=== PATIENT | male | born 2000 | race Caucasian/White ===

== ENCOUNTER 2022-08-10 08:31 | Emergency (ER) | payer MEDICAID, OTHER ==
[~2022-08-10] VITALS: Ht 182.9 cm; Wt 67.9 kg
[2022-08-10] MEDS ORDERED: NS 1,000 ML IV ONE (09:15)
[2022-08-10] MEDS ORDERED: HALOPERIDOL 5MG/ML 1ML VIAL IV ONE (09:15)
[2022-08-10] MEDS ORDERED: PANTOPRAZOLE 40MG VIAL IV ONE (09:15)
[2022-08-10 10:14] LABS: BASO % 0.2 % (0.0-1.0); EOS # 0.1 10^3/uL (0.0-0.5); EOS % 0.5 % (0.0-3.0); HEMATOCRIT 45.7 % (42.0-52.0); HEMOGLOBIN 16.1 g/dl (13.5-17.5); LYMPH # 1.5 10^3/uL (1.5-5.0); LYMPH % 11.7 % (24.0-44.0); MEAN CORPUSCULAR HEMOGLOBIN 30.7 pg (27.0-33.0); MEAN CORPUSCULAR HGB CONC 35.2 g/dl (32.0-36.5); MEAN CORPUSCULAR VOLUME 87.2 fl (80.0-96.0); MONO % 7.8 % (2.0-8.0); NEUTROPHILS # 10.1 10^3/uL (1.5-8.5); NEUTROPHILS % 79.4 % (36.0-66.0); PLATELET COUNT, AUTOMATED 181 10^3/uL (150-450); RED BLOOD COUNT 5.24 10^6/uL (4.30-6.10); WHITE BLOOD COUNT 12.7 10^3/uL (4.0-10.0)
[2022-08-10 10:23] LABS: INR 0.94; PROTHROMBIN TIME 12.8 SECONDS (12.5-14.5)
[2022-08-10 10:24] LABS: PARTIAL THROMBOPLASTIN TIME 26.5 SECONDS (24.8-34.2)
[2022-08-10] MEDS ORDERED: ISOVUE-370 76% 100ML VIAL As Ordered ONE (10:24)
[2022-08-10 10:45] LABS: AMPHETAMINES LEVEL URINE NEGATIVE (NEGATIVE); BARBITURATES URINE NEGATIVE (NEGATIVE); BENZODIAZEPINES URINE NEGATIVE (NEGATIVE); COCAINE METABOLITE URINE NEGATIVE (NEGATIVE)
[2022-08-10 10:46] LABS: METHADONE URINE NEGATIVE (NEGATIVE); OPIATES URINE NEGATIVE (NEGATIVE); PHENCYCLIDINE URINE NEGATIVE (NEGATIVE)
[2022-08-10] MEDS ORDERED: ONDANSETRON 4MG 2ML VIAL IV ONE (10:50)
[2022-08-10 10:54] LABS: CANNABINOIDS URINE POSITIVE (NEGATIVE)
[2022-08-10 11:16] LABS: ALBUMIN 4.8 G/DL (3.2-5.2); BILIRUBIN,DIRECT 0.2 MG/DL (<0.4); BILIRUBIN,TOTAL 0.9 MG/DL (0.3-1.2); MB/CK RELATIVE INDEX 0.78 (< OR =4)
[2022-08-10 12:49] VITALS: BP 111/57
[2022-08-10] MEDS ORDERED: POTASSIUM CHLORIDE 10MEQ SR TABLET PO ONE (13:30)
[2022-08-10] MEDS ORDERED: OMEP40CA4 PO ×2 (13:42→15:10)
[2022-08-10] MEDS ORDERED: SUCR1SS PO ×2 (14:23→15:10)
[2022-08-10] MEDS ORDERED: ONDA4TAB6 PO ×2 (14:23→15:10)
[2022-08-10 18:23] LABS: TOTAL PROTEIN 8.2 G/DL (5.7-8.2)
== END 2022-08-10 15:35 | disposition left against medical advice (07) ==
LOC: M ED 08:31
DX: K29.70 Gastritis, unspecified, without bleeding (principal); E87.6 Hypokalemia; K20.90 Esophagitis, unspecified without bleeding; F12.188 Cannabis abuse with other cannabis-induced disorder; K92.0 Hematemesis; K56.1 Intussusception; Z53.9 Procedure and treatment not carried out, unspecified reason; Z20.89 Contact with and (suspected) exposure to other communicable diseases; F41.9 Anxiety disorder, unspecified; F32.9 Major depressive disorder, single episode, unspecified; Z87.442 Personal history of urinary calculi; F17.200 Nicotine dependence, unspecified, uncomplicated; F12.10 Cannabis abuse, uncomplicated
CPT/HCPCS: 71045; 74177; 80047; 80076; 80307; 82550; 82553; 83690; 84484; 85025; 85610; 85730; 87486; 87581; 87633; 87798; 93005; 96361; 96374; 96375; 99284; C9113; J1630; J2405; Q9967

== ENCOUNTER 2023-06-08 16:57 | Emergency (ER) | payer MEDICAID, SELFPAY ==
[~2023-06-08] VITALS: Ht 182.9 cm; Wt 72.3 kg
[~2023-06-08 16:57] MED LIST: OMEP40CA4 PO; ONDA4TAB6 PO; SUCR1SS PO
[2023-06-08 20:48] VITALS: BP 133/69; TEMP 98.6; O2SAT 99
== END 2023-06-08 20:50 | disposition home or self-care (01) ==
LOC: M ED 16:57
DX: S00.81XA Abrasion of other part of head, initial encounter (principal); S80.219A Abrasion, unspecified knee, initial encounter; S00.03XA Contusion of scalp, initial encounter; S00.33XA Contusion of nose, initial encounter; S30.0XXA Contusion of lower back and pelvis, initial encounter; S16.1XXA Strain of muscle, fascia and tendon at neck level, initial encounter; M79.632 Pain in left forearm; Y04.8XXA Assault by other bodily force, initial encounter; Y92.9 Unspecified place or not applicable; Y93.9 Activity, unspecified; Y99.9 Unspecified external cause status; F17.290 Nicotine dependence, other tobacco product, uncomplicated

== ENCOUNTER 2024-08-18 21:56 | Emergency (ER) | payer SELFPAY ==
[~2024-08-18] VITALS: Ht 182.9 cm; Wt 79.1 kg
[~2024-08-18 21:56] MED LIST changes: +ONDA-282 PO; -ONDA4TAB6 PO
[2024-08-19] MEDS ORDERED: AMOX875T2 PO (00:46)
[2024-08-19] MEDS: AUGMENTIN 875 MG TAB PO ONE (00:58)
[2024-08-19] MEDS: KETOROLAC 60MG 2ML VIAL IM ONE (00:58)
[2024-08-19 01:12] VITALS: BP 109/58; TEMP 97; O2SAT 99
== END 2024-08-19 01:15 | disposition home or self-care (01) ==
LOC: M ED 21:56
DX: K02.9 Dental caries, unspecified (principal); F17.200 Nicotine dependence, unspecified, uncomplicated
CPT/HCPCS: 96372; 99283; J1885